=== PATIENT | female | born 1980 | race Caucasian/White ===

== ENCOUNTER → 2017-08-19 | Outpatient (CLI) | payer BC ==
--- NOTE | 2017-08-19 12:48 | Diagnostic Imaging Report ---
PROCEDURE:PELVIC ULTRASOUND COMPARISON:None. INDICATIONS:Pelvic pain TECHNIQUE: Turner scale and color Doppler ultrasound pelvis FINDINGS: Retroverted uterus measuring 10.8 x 5.2 x 6.7 cm. Endometrial thickness 0.9 cm. Right ovary: 3.8 x 3.1 x 3.2 cm. 2.8 cm simple cyst. Left ovary: 2.8 x 2.1 x 2.1 cm. No free pelvic fluid. CONCLUSION: Normal pelvic ultrasound. Dictated by: Redd Linn M.D. on 08/19/2017 at 12:50 Electronically approved by: Redd Linn M.D. on 08/19/2017 at 12:50
--- NOTE | 2017-08-19 13:55 | Diagnostic Imaging Report ---
PROCEDURE:X-RAY ESOPHAGRAM COMPARISON:None. INDICATIONS:Dysphagia FINDINGS:The patient was given air crystals, thick barium, and thin barium to drink in upright and prone positions. Multiple images of the hypopharynx, esophagus, and proximal stomach were obtained. The vallecullae and pyriform sinuses are normal. The esophagus is normal in appearance without evidence of dysmotility, esophagitis, or reflux. No hernia is identified. The proximal stomach is normal without evidence of intrinsic mucosal or extrinsic abnormality. IMPRESSION: 1. Unremarkable esophagram Moris Lott M.D. Dictated by: Moris Lott M.D. on 08/19/2017 at 13:57 Electronically approved by: Moris Lott M.D. on 08/19/2017 at 13:57
== END ==
LOC: DX 09:43
PROVIDERS: ATTEND Family Medicine
DX: R10.32 Left lower quadrant pain (principal); T18.120A Food in esophagus causing compression of trachea, initial encounter; R06.6 Hiccough
CPT/HCPCS: 74220; 76856; 81025